=== PATIENT | female | born 1970 | race Caucasian/White ===

== ENCOUNTER → 2016-11-30 09:28 | Outpatient (CLI) | payer MEDICAID ==
[2016-08-08 19:28] VITALS: BMI 35.4
[~2016-11-30 09:28] MED LIST: BAYER CHEWABLE81 MG PO; CO Q-10100 MG PO; ELIQUIS2.5 MG PO; GLUCOPHAGE1000 MG PO; GLUCOPHAGE500 MG PO; LANTUS INSULIN10 ML SC; MAG-OX 400 MG400 MG PO; METOPROLOL TART25 MG PO; METOPROLOL TART50 MG PO; MIRALAX17 GM PO; NIASPAN500 MG PO; NOVOLOG100 U/M1 SC; OMEGA 3 FISH OI1 CAP PO; PAMELOR10 MG PO; PAROXETINE HCL10 MG PO; PERCOCET 10/3251 TA1 PO; PROBIOTIC1 EAC1 PO; REQUIP0.5 MG PO; ZANAFLEX4 MG PO; ZESTRIL10 MG PO; ZESTRIL20 MG PO; coconut oil PO
== END | disposition home or self-care (01) ==
LOC: D.NM 09:28
DX: R00.0 Tachycardia, unspecified (principal); R94.31 Abnormal electrocardiogram [ECG] [EKG]

== ENCOUNTER → 2016-12-12 10:41 | Outpatient (CLI) | payer MEDICAID ==
[2016-08-08 19:28] VITALS: BMI 35.4
== END | disposition home or self-care (01) ==
LOC: D.US 10:30
DX: N28.1 Cyst of kidney, acquired (principal)

== ENCOUNTER 2017-03-20 07:01 | Day surgery (SDC) | payer MEDICAID ==
[2017-03-17 14:34] LABS: HEMOGLOBIN 11.8 g/dL (12-16); MCHC 33.7 g/dL (31.0-37.0); MCV 89.1 fL (80.0-100.0); MEAN PLATELET VOLUME 8.9 fL (7.4-10.4); RBC 3.93 10x6/uL (4.00-5.40); RDW 13.5 % (11.5-14.5); WBC 7.5 10x3/uL (4.8-10.8)
[2017-03-17 14:48] LABS: CALCIUM 8.5 mg/dL (8.5-10.1); CARBON DIOXIDE 21.9 mmol/L (21.0-32.0); POTASSIUM - SERUM 3.9 mmol/L (3.5-5.1)
[~2017-03-20] VITALS: Ht 162.6 cm; Wt 86.2 kg
[~2017-03-20 07:01] MED LIST changes: +FUROSEMIDE20 MG PO; +L-LYSINE500 M1 PO; +LEVEMIR100 U/M1 SC; +MOBIC7.5 MG PO; +NEURONTIN 300300 MG PO; +TOPAMAX25 MG PO; +ULTRAM50 MG PO
[2017-03-20] MEDS ORDERED: REQUIP1 MG PO (08:58)
[2017-03-20 09:26] VITALS: Ht 162.6 cm; Wt 86.2 kg
--- NOTE | 2017-03-20 10:12 | NUR ---
1010 [facility] 162. A. MIN Allan
[2017-03-20] MEDS ORDERED: PERCOCET 10/3251 TA1 PO (13:24)
--- NOTE | 2017-03-22 19:44 | OP ---
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 PROCEDURES: 1. Arthroscopic distal clavicle excision of the left shoulder. 2. Arthroscopic subacromial decompression with acromioplasty and bursectomy of the left shoulder. SURGEON: Maggie Sanders MD. ANESTHESIA: General. INTRAOPERATIVE COMPLICATIONS: None. SUMMARY OF PATHOLOGIC FINDINGS: Again, consistent with preoperative MRI, the patient had severe impingement and rotator cuff attritional tearing no more than 10%, however, but AC arthropathy was noted. OPERATIVE SUMMARY IN DETAIL: After obtaining the appropriate preoperative orthopedic surgery consent as well as anesthetic consultation, evaluation and clearance, the patient was brought to the operating room and placed on the operating table in supine position. After general laryngeal mask was administered, the patient was placed in a right lateral decubitus position. All pressure points were well padded to include down leg peroneal pad as well as axillary roll. The patient was held firmly to the operating room table. Using the vacuum pack suction system, left upper extremity and shoulder were then prepped and draped in routine sterile fashion. The arm was held in the Arthrex traction boom at 30 degrees of forward flexion, 30 degrees of abduction, 10 pounds of traction laterally. Arthroscopy was established in the glenohumeral joint from a posterior portal. Anterior portal was established into the glenohumeral joint. Diagnostic arthroscopy revealed the above findings. Small labral tearing was noted. Slight labral debridement was performed. There was some biceps tendinitis; however, the tendon was intact without tearing. Attention was turned to the subacromial space. While in the subacromial space, the Atkinson tissue ablation system was utilized to denude the undersurface of the acromion of all soft tissue elements and a 5-0 barrel adriane was used to perform acromioplasty at the level of acromioclavicular joint. All bursa was taken down anteriorly, laterally, posteriorly and superiorly. Under direct arthroscopic visualization, the distal clavicle was taken down for 1 cm. Having completed this, arthroscopy portals were closed in routine interrupted fashion using 4-0 Prolene. Sterile dressings were applied. The patient was awakened, taken to recovery room in stable condition. All final needle and sponge counts were correct. TRANSINT:[id number] Voice Confirmation ID: [id number] DOCUMENT ID: [id number] OPERATIVE REPORT [id number] NUNO HUSTON MD, MAGGIE LAY at 1944 CC: [id number] DICTATION DATE: 03/20/17 1322 FIRER LOCOMOTIVE: 03/20/17 1628 [facility] 03/20/17 [id number] [place] [address]
== END 2017-03-20 15:50 | disposition home or self-care (01) ==
LOC: D.OPS 07:01 → D.PAN 12:00 → D.OPS 12:50 → D.PAN 12:55 → D.OPS 13:00
PROVIDERS: Anesthesiology
DX: M75.42 Impingement syndrome of left shoulder (principal); M13.812 Other specified arthritis, left shoulder; M75.112 Incomplete rotator cuff tear or rupture of left shoulder, not specified as traumatic; Z01.812 Encounter for preprocedural laboratory examination

== ENCOUNTER → 2017-05-29 19:31 | Outpatient (CLI) | payer MEDICAID ==
[2017-03-20 09:26] VITALS: BMI 32.7
[~2017-05-29 19:31] MED LIST changes: +ALPHAGAN 0.2%5 ML EACH EYE; +HYDROCODONE-APA1 TAB PO; +REQUIP1 MG PO; +VOLTAREN100 MG PO
== END | disposition home or self-care (01) ==
LOC: D.SLEEP 05-18 20:00
DX: G47.33 Obstructive sleep apnea (adult) (pediatric) (principal)

== ENCOUNTER 2017-07-10 09:20 | Day surgery (SDC) | payer MEDICAID ==
[2017-07-07 14:53] LABS: HEMATOCRIT 32.3 % (36.0-48.0); HEMOGLOBIN 10.9 g/dL (12-16); MCH 30.4 pg (26.0-34.0); MCHC 33.7 g/dL (31.0-37.0); MEAN PLATELET VOLUME 8.8 fL (7.4-10.4); RBC 3.59 10x6/uL (4.00-5.40); RDW 13.8 % (11.5-14.5); WBC 7.8 10x3/uL (4.8-10.8)
[2017-07-07 15:11] LABS: CALC OSMOLALITY 278 mosm/kg (275-300); CALCIUM 9.2 mg/dL (8.5-10.1); CARBON DIOXIDE 19.7 mmol/L (21.0-32.0); CHLORIDE - SERUM 106 mmol/L (98-107); CREATININE - SERUM 0.8 mg/dL (0.6-1.3); GLUCOSE 83 mg/dL (74-106); POTASSIUM - SERUM 3.9 mmol/L (3.5-5.1); SODIUM 139 mmol/L (136-145); UREA NITROGEN 18 mg/dL (7-18); eGFR NON AFRICAN AMERICAN 81 mL/min (90-120)
[~2017-07-10] VITALS: Ht 162.6 cm; Wt 90.7 kg
[~2017-07-10 09:20] MED LIST changes: -ALPHAGAN 0.2%5 ML EACH EYE; -HYDROCODONE-APA1 TAB PO
[2017-07-10] MEDS ORDERED: ALPHAGAN 0.2%5 ML EACH EYE (10:55)
[2017-07-10 11:04] VITALS: BP 121/61; Ht 162.6 cm; Wt 90.7 kg
[2017-07-10] MEDS ORDERED: HYDROCODONE-APA1 TAB PO (13:15)
--- NOTE | 2017-07-10 16:37 | OP ---
PATIENT NAME: NUNO HUSTON MEDICAL RECORD: [id number] :68 LOCATION:[facility] ADMISSION DATE: SURGEON: MAGGIE SANDERS MD DATE OF OPERATION: 07/10/2017 PREOPERATIVE DIAGNOSES: 1. Trigger finger, right hand long finger. 2. Trigger finger, right hand ring finger. POSTOPERATIVE DIAGNOSES: 1. Trigger finger, right hand long finger. 2. Trigger finger, right hand ring finger. PROCEDURE: 1. Trigger finger release, right hand long finger. 2. Trigger finger release, right hand ring finger. SURGEON: Maggie Sanders MD ANESTHESIA: General. INTRAOPERATIVE COMPLICATIONS: None. SUMMARY OF PATHOLOGIC FINDINGS: The patient had very tight A1 pulleys of both fingers consistent with the diagnosis of bilateral trigger finger. OPERATIVE SUMMARY IN DETAIL: After obtaining the appropriate preoperative orthopedic surgery consent as well as anesthetic consultation, evaluation and clearance, the patient was brought to the operating room and placed on the operating table in supine position. After general laryngeal mask was administered, tourniquet was placed about the proximal aspect of the right upper extremity. Right upper extremity was then prepped and draped in routine sterile fashion. The arm was elevated and exsanguinated, tourniquet inflated to 250 mmHg. An incision was made along the A1 noah of the trigger and ring finger, one incision. Careful dissection was carried down. Both the A1 pulleys were identified. The ring finger was incised first with good release. No damage was seen to the underlying flexor tendons. Attention was then turned to the long finger A1 noah again. Under direct visualization, the A1 noah was released and again good excursion of the tendon was achieved. Wound was copiously irrigated and closed with 4-0 Prolene in mattress fashion. The wound was irrigated prior. The area was then locally infiltrated with 0.25% Marcaine plain. Sterile dressings were applied. Tourniquet was deflated. The patient was awakened and taken to recovery room in stable condition. All final needle and sponge counts were correct. TRANSINT:[id number] Voice Confirmation ID: [id number] DOCUMENT ID: [id number] OPERATIVE REPORT [id number] NUNO HUSTON MARILYN PADILLA, MAGGIE LAY at 4840 CC: [id number] DICTATION DATE: 07/10/17 1322 PRODUCE MANAGER: 07/10/17 1414 [facility] [address] [facility] [address]
--- NOTE | 2017-07-10 16:56 | NUR ---
1430 IV DC WITH CATHER TIP INTACT
== END 2017-07-10 14:45 | disposition home or self-care (01) ==
LOC: D.OPS 09:20 → D.PAN 12:00 → D.OPS 13:15 → D.PAN 13:45 → D.OPS 14:45 → D.PAN 14:50
PROVIDERS: Anesthesiology
DX: M65.331 Trigger finger, right middle finger (principal); M65.341 Trigger finger, right ring finger; I10 Essential (primary) hypertension; E11.9 Type 2 diabetes mellitus without complications; K21.9 Gastro-esophageal reflux disease without esophagitis; Z01.812 Encounter for preprocedural laboratory examination

== ENCOUNTER 2017-08-09 22:11 | Emergency (ER) | payer MEDICAID ==
[2017-07-10 11:04] VITALS: BMI 34.4
[~2017-08-09 22:11] MED LIST changes: +ALPHAGAN 0.2%5 ML EACH EYE; +HYDROCODONE-APA1 TAB PO
== END 2017-08-09 23:45 | disposition home or self-care (01) ==
LOC: D.ER 22:11
DX: J20.9 Acute bronchitis, unspecified (principal); J01.90 Acute sinusitis, unspecified; I10 Essential (primary) hypertension

== ENCOUNTER 2017-11-06 06:51 | Day surgery (SDC) | payer MEDICAID ==
[~2017-11-06] VITALS: Ht 160 cm; Wt 91.6 kg
--- NOTE | ~2017-11-06 | OP ---
PATIENT NAME: NUNO HUSTON MEDICAL RECORD: [id number] :68 LOCATION:[facility] ADMISSION DATE: SURGEON: MAGGIE SANDERS MD DATE OF OPERATION: 11/06/2017 PREOPERATIVE DIAGNOSIS: Recurrent trigger finger, right long finger. POSTOPERATIVE DIAGNOSIS: Recurrent trigger finger, right long finger. PROCEDURE: A1 noah release, right long finger. SURGEON: Maggie Sanders MD ANESTHESIA: General. INTRAOPERATIVE COMPLICATIONS: None. SUMMARY OF PATHOLOGIC FINDINGS: The patient was indeed found to have a recurrence and scar tissue at the A1 noah of the long finger. OPERATIVE SUMMARY IN DETAIL: After obtaining the appropriate preoperative orthopedic surgery consent as well as anesthetic consultation, evaluation, and clearance, the patient was brought to the operating room and placed on the operating table in supine position. After general laryngeal mask was administered, tourniquet was placed about the proximal aspect of the right upper extremity. The right upper extremity was then prepped and draped in routine sterile fashion. The arm was elevated, exsanguinated and tourniquet was inflated to 250 mmHg. An incision was made over the previous incision, taken directly down to the A1 noah, was visualized in its entirety from proximal to distal. It was incised allowing for perfect excursion of the tendon with no tendinopathy. The wound was then irrigated and closed with 4-0 Prolene in mattress style fashion. The area was locally infiltrated with 0.25% Marcaine plain. Sterile dressings were applied. Tourniquet was deflated. The patient was awakened and taken to the recovery room in stable condition. All final needle and sponge counts were correct. TRANSINT:[id number] Voice Confirmation ID: [id number] DOCUMENT ID: [id number] MAGGIE SANDERS MD at 1808 CC: [id number] DICTATION DATE: 11/06/17 1531 FRUIT DISTRIBUTOR: 11/06/17 1615 [facility] 11/06/[address] [address]
[~2017-11-06 06:51] MED LIST changes: +LEVEMIR100 U/M1; -LEVEMIR100 U/M1 SC
[2017-11-06 07:51] LABS: HEMATOCRIT 32.8 % (36.0-48.0); HEMOGLOBIN 10.5 g/dL (12-16); MCH 28.2 pg (26.0-34.0); MCV 88.2 fL (80.0-100.0); RBC 3.72 10x6/uL (4.00-5.40); RDW 13.7 % (11.5-14.5); WBC 12.8 10x3/uL (4.8-10.8)
[2017-11-06 07:56] VITALS: BP 96/50; Ht 160 cm; Wt 91.6 kg
[2017-11-06 08:03] LABS: ANION GAP 15.8 mmol/L (8-16); CALCIUM 8.4 mg/dL (8.5-10.1); CREATININE - SERUM 1.1 mg/dL (0.6-1.3); POTASSIUM - SERUM 4.8 mmol/L (3.5-5.1)
== END 2017-11-06 11:03 | disposition home or self-care (01) ==
LOC: D.OPS 06:51 → D.PAN 11:45
PROVIDERS: Anesthesiology
DX: M65.331 Trigger finger, right middle finger (principal); Z01.812 Encounter for preprocedural laboratory examination

== ENCOUNTER 2019-05-16 16:05 | Emergency (ER) | payer MEDICAID ==
[~2019-05-16] VITALS: Ht 160 cm; Wt 90.9 kg
[2019-05-16 16:18] VITALS: Ht 160 cm; Wt 90.9 kg
[2019-05-16] MEDS ORDERED: HYDROCODON-ACE1 EAC7 PO (18:46)
[2019-05-16 19:30] VITALS: BP 116/68
== END 2019-05-16 19:11 | disposition home or self-care (01) ==
LOC: D.ER 16:05
DX: M25.561 Pain in right knee (principal); I10 Essential (primary) hypertension; E11.9 Type 2 diabetes mellitus without complications; I25.10 Atherosclerotic heart disease of native coronary artery without angina pectoris

== ENCOUNTER → 2020-02-24 10:50 | Outpatient (CLI) | payer MEDICAID ==
[2019-05-16 16:18] VITALS: BMI 35.5
[~2020-02-24 10:50] MED LIST changes: +HYDROCODON-ACE1 EAC7 PO
== END | disposition home or self-care (01) ==
LOC: D.HCCECHO 10:50
PROVIDERS: ATTEND Internal Medicine Cardiovascular Disease
DX: I10 Essential (primary) hypertension (principal)